=== PATIENT | male | born 1940 | race Hispanic/Latino ===

== ENCOUNTER → 2017-07-21 | Outpatient (CLI) | payer MEDICARE, OTHER ==
[~2017-07-21] MED LIST: DIATRIZOATE MEGL/DIATRIZOA SOD 30 ML BTL PO ONE; HYDROCHLOROTHIA25 MG; IOPAMIDOL 370 MG/ML 200 ML INFUS..BTL INJ ONE; MILK THISTLE PO; SIMVASTATIN20 MG PO; SODIUM CHLORIDE 0.9% 50ML 50 ML ONE; TESTOSTERONE TP; VITAMIN D35000 UNI1
[2017-07-21 08:22] LABS: BLOOD UREA NITROGEN 16 mg/dL (7-26); BUN/CREATININE RATIO 17 (6-25); CREATININE, SERUM 0.94 mg/dL (0.72-1.25); EST GLOMERULAR FILTRATION RATE > 60 ML/MIN (60-)
--- NOTE | 2017-07-21 09:25 | Diagnostic Imaging Report ---
PROCEDURE: CT ABDOMEN AND PELVIS WITH CONTRAST TECHNIQUE: The abdomen and pelvis were scanned utilizing a multidetector helical scanner from the diaphragm to the lesser trochanter after the IV administration of 100 cc of Isovue 370 and the oral administration of Gastroview and water. Coronal and sagittal multiplanar reformations were obtained. COMPARISON: CT abdomen and pelvis 08/21/2009. INDICATIONS: Abdomen pain, bloating FINDINGS: LOWER THORAX: Normal. HEPATOBILIARY: No focal hepatic lesions. No biliary ductal dilatation. Stable cysts in the liver. SPLEEN: No splenomegaly. PANCREAS: No focal masses or ductal dilatation. ADRENALS: No adrenal nodules. KIDNEYS/URETERS: No hydronephrosis, stones, or solid mass lesions. PELVIC ORGANS/BLADDER: Normal urinary bladder. PERITONEUM / RETROPERITONEUM: No free air or fluid. LYMPH NODES: No lymphadenopathy. VESSELS: Unremarkable. GI TRACT: No distention or wall thickening. Normal appendix. Moderate amount of retained feces the intraluminal evaluation of the colon. BONES AND SOFT TISSUES: Age-indeterminate compression fracture of the T11 vertebral body. Degenerative changes of the lumbar spine. IMPRESSION: No acute abnormality of the abdomen and pelvis. Age indeterminate compression fracture of the T11 vertebral body. Dictated by: Celso Live M.D. on 07/21/2017 at 9:26 Electronically approved by: Celso Live M.D. on 07/21/2017 at 9:26
== END ==
LOC: CT 07:30
PROVIDERS: ATTEND Internal Medicine Gastroenterology
DX: K43.9 Ventral hernia without obstruction or gangrene (principal); R14.0 Abdominal distension (gaseous); R14.3 Flatulence; E66.3 Overweight; Z71.3 Dietary counseling and surveillance
CPT/HCPCS: 36415; 74177; 82565; 84520; Q9967

== ENCOUNTER → 2018-05-15 | Outpatient (CLI) | payer MEDICARE, OTHER ==
[~2018-05-15] MED LIST changes: -DIATRIZOATE MEGL/DIATRIZOA SOD 30 ML BTL PO ONE; -IOPAMIDOL 370 MG/ML 200 ML INFUS..BTL INJ ONE; -SODIUM CHLORIDE 0.9% 50ML 50 ML ONE
--- NOTE | 2018-05-15 16:34 | Diagnostic Imaging Report ---
Examination: MRI BRAIN WITHOUT CONTRAST History: TIA Comparison studies: None Technique: Sagittal T2; axial DWI, FLAIR, GRE or SWI, T1, Coronal FLAIR. Intravenous contrast: None Findings: Scalp: No abnormal signal. No masses. Bone marrow: Normal in signal intensity. Brain volume: Adequate for age. No volume loss. Ventricles: Normal in size and configuration. No hydrocephalus. Extra-axial spaces: No abnormalities. Parenchyma: There are scattered punctate areas of T2/FLAIR hyperintensity in the periventricular and subcortical white matter, nonspecific. No masses, hemorrhage, or acute vascular insults. Suprasellar and sellar region: No abnormalities. Craniocervical junction: No abnormalities. The foramen magnum is patent. No Chiari malformations. Vessels: Normal flow-voids in the arteries and sinuses. Additional findings:None. IMPRESSION: 1. No acute intracranial abnormalities. 2. Mild chronic microvascular ischemic change. Signed by: Dr. Shirley Chatman M.D. on 05/15/2018 4:30 PM
== END ==
LOC: CARD 13:25
PROVIDERS: ATTEND Psychiatry & Neurology Clinical Neurophysiology
DX: G45.9 Transient cerebral ischemic attack, unspecified (principal)
CPT/HCPCS: 70551; 93880